=== PATIENT | male | born 1970 | race Caucasian/White ===

== ENCOUNTER 2018-06-06 10:15 | Day surgery (SDC) | payer OTHER ==
[~2018-06-06 10:15] MED LIST: PROPOFOL INJ 200 MG/20 ML VIAL IV ONE
[2018-06-06] MEDS ORDERED: PROPOFOL INJ 200 MG/20 ML VIAL IV ONE (11:18)
[2018-06-06 12:10] VITALS: BP 113/77
--- NOTE | 2018-06-06 12:58 | Operative Report ---
Operative Report DATE OF SURGERY: 06/06/18 Operative Report: The risks, benefits and alternatives of the procedure including risks of bleeding, perforation requiring surgery are explained to the patient in detail and informed consent is obtained. Patient was taken back to the endoscopy suite and placed in the left, lateral decubital position. Timeout was called. Propofol medication is administered. A rectal examination is done which did not reveal any masses, tears or fissures. An Olympus videoscope is inserted into the patient's rectum. The scope was then carefully advanced all the way to the cecum. The cecum was identified by the usual anatomical landmarks including the ileocecal valve as well as the appendiceal office. Photodocumentation is obtained. The scope was then sequentially pulled back via the various segments of the colon including the ascending colon transverse colon, splenic flexure, descending colon and finally into the rectosigmoid portions of the colon. Retroflexion maneuvers performed. PREOPERATIVE DIAGNOSIS: Change in bowel habits POSTOPERATIVE DIAGNOSIS: 2 sigmoid colon polyps; first which is removed via snare polypectomy and retrieved the second was ablated in situ. Rectal polyp that was removed via snare polypectomy and retrieved. Internal hemorrhoids OPERATION: Colonoscopy with snare polypectomy. Colonoscopy with biopsy SURGEON: RAJESH PRATT ANESTHESIA: LMAC TISSUE REMOVED OR ALTERED: As noted above. COMPLICATIONS: None. ESTIMATED BLOOD LOSS: None. INTRAOPERATIVE FINDINGS: As noted above. PROCEDURE: Patient tolerated the procedure well. No immediate postprocedure complications are noted. Patient discharged in good condition. Discharge date 06/06/2018. Discharge diet: Regular. Discharge activity: Regular. 2-3 week follow-up to discuss findings. Patient is instructed to call the office or proceed to the emergency room should there be any further problems or questions. 3-5 year surveillance colonoscopy. We will wait on the pathology.
== END 2018-06-06 12:05 | disposition home or self-care (01) ==
LOC: END 10:15
PROVIDERS: ATTEND Internal Medicine Gastroenterology
DX: D12.5 Benign neoplasm of sigmoid colon (principal); K63.5 Polyp of colon; K64.8 Other hemorrhoids; Z79.899 Other long term (current) drug therapy
CPT/HCPCS: 45380; 45385; 88305 ×2; J2704; 811

== ENCOUNTER 2018-09-30 11:36 | Emergency (ER) | payer OTHER ==
[2018-09-30] MEDS ORDERED: ASPIRIN 81 MG TABLET, CHEWABLE PO ONE (12:04)
--- NOTE | 2018-09-30 12:06 | ER Document Report ---
ED Medical Screen (RME) - General Chief Complaint: Chest Pain Stated Complaint: CHEST PAIN, JAW PAIN Time Seen by Provider: 09/30/18 12:04 Notes: 48 years old male presents today with precordial chest pain around 1045 this morning, associated with left jaw numbness and left arm tingling sensation. It is still persisting but intensity has subsided. Not associated with any nausea vomiting difficulty in breathing. He had chest pain couple of days ago went away Not a smoker no alcohol abuse. No known family history. TRAVEL OUTSIDE OF THE [place] IN LAST 30 DAYS: No - Related Data Allergies/Adverse Reactions: No Known Allergies Allergy (Verified 09/30/18 11:43) Past Medical History - Social History Chew tobacco use (# tins/day): No Frequency of alcohol use: Occasional Drug Abuse: None - Past Medical History Cardiac Medical History: Denies: Hx Coronary Artery Disease, Hx Heart Attack, Hx Hypertension Pulmonary Medical History: Denies: Hx Asthma, Hx Bronchitis, Hx COPD, Hx Pneumonia Neurological Medical History: Denies: Hx Cerebrovascular Accident, Hx Seizures Renal/ Medical History: Denies: Hx Peritoneal Dialysis Musculoskeltal Medical History: Denies Hx Arthritis - Immunizations Hx Diphtheria, Pertussis, Tetanus Vaccination: Yes Physical Exam - Vital signs Vitals: Temp Pulse Resp BP Pulse Ox 98.2 F 74 16 124/80 97 09/30/18 11:52 09/30/18 11:52 09/30/18 11:52 09/30/18 11:52 09/30/18 11:52 Course - Vital Signs Vital signs: Temp Pulse Resp BP Pulse Ox 98.2 F 74 16 124/80 97 09/30/18 11:52 09/30/18 11:52 09/30/18 11:52 09/30/18 11:52 09/30/18 11:52 Doctor's Discharge - Discharge Referrals: KARMEN JOAQUIN DO [Primary Care Provider] - Follow up as needed
--- NOTE | 2018-09-30 12:32 | RADIOLOGY REPORT (SQ) ---
EXAM DESCRIPTION: CHEST SINGLE VIEW COMPLETED DATE/TIME: 09/30/2018 12:23 pm REASON FOR STUDY: Chest pain COMPARISON: 11/22/2015 EXAM PARAMETERS: NUMBER OF VIEWS: One view. TECHNIQUE: Single frontal radiographic view of the chest acquired. RADIATION DOSE: NA LIMITATIONS: None. FINDINGS: LUNGS AND PLEURA: No opacities, masses or pneumothorax. No pleural effusion. MEDIASTINUM AND HILAR STRUCTURES: No masses. Contour normal. HEART AND VASCULAR STRUCTURES: Heart normal in size. Normal vasculature. BONES: No acute findings. HARDWARE: None in the chest. OTHER: No other significant finding. IMPRESSION: NO ACUTE RADIOGRAPHIC FINDING IN THE CHEST. TECHNICAL DOCUMENTATION: JOB ID: [id number] [employer] All Rights Reserved Reading location - IP/workstation name: [email or web address]
[2018-09-30 12:41] LABS: ABSOLUTE BASOPHILS # (AUTO) 0.1 10^3/uL (0.0-0.2); ABSOLUTE EOSINOPHILS # (AUTO) 0.1 10^3/uL (0.0-0.6); ABSOLUTE LYMPHOCYTES (AUTO) 2.2 10^3/uL (0.5-4.7); ABSOLUTE MONOCYTES (AUTO) 0.6 10^3/uL (0.1-1.4); ABSOLUTE NEUT (AUTO) 3.5 10^3/uL (1.7-8.2); BASOPHILS % (AUTO) 0.8 % (0-2); HEMATOCRIT 44.9 % (37.9-51.0); HEMOGLOBIN 15.8 g/dL (13.5-17.0); LYMPHOCYTES % (AUTO) 33.9 % (13-45); MEAN CORPUSCULAR HEMOGLOBIN 30.6 pg (27.0-33.4); MEAN CORPUSCULAR HGB CONC 35.2 g/dL (32.0-36.0); MEAN CORPUSCULAR VOLUME 87 fl (80-97); MONOCYTES % (AUTO) 9.4 % (3-13); PLATELET COUNT 224 10^3/uL (150-450); RED BLOOD COUNT 5.16 10^6/uL (4.35-5.55); SEGMENTED NEUTROPHILS % (AUTO) 54.9 % (42-78); TOTAL CELLS COUNTED % (AUTO) 100 %; WHITE BLOOD COUNT 6.5 10^3/uL (4.0-10.5)
[2018-09-30 12:55] LABS: ALANINE AMINOTRANSFERASE 29 U/L (21-72); ALBUMIN 4.8 g/dL (3.5-5.0); ALKALINE PHOSPHATASE 49 U/L (38-126); ANION GAP 13 (5-19); ASPARTATE AMINO TRANSFERASE 31 U/L (17-59); BILIRUBIN,DIRECT 0.3 mg/dL (0.0-0.4); BILIRUBIN,TOTAL 0.6 mg/dL (0.2-1.3); BLOOD UREA NITROGEN 21 mg/dL (7-20); CARBON DIOXIDE 29 mmol/L (22-30); CHLORIDE 101 mmol/L (98-107); CREATINE KINASE 155 U/L (55-170); GLUCOSE 110 mg/dL (75-110); POTASSIUM 4.4 mmol/L (3.6-5.0); SODIUM 142.8 mmol/L (137-145); TOTAL PROTEIN 7.8 g/dL (6.3-8.2)
[2018-09-30 13:06] LABS: CREATINE KINASE MB 0.53 ng/mL (<4.55)
[2018-09-30 13:10] LABS: TROPONIN I < 0.012 ng/mL
--- NOTE | 2018-09-30 13:21 | EKG REPORT ---
SEVERITY:- ABNORMAL ECG - SINUS RHYTHM RIGHT BUNDLE BRANCH BLOCK : Confirmed by: Morgan Villegas MD 30-Sep-2018 13:19:54
--- NOTE | 2018-09-30 17:02 | ER Document Report ---
ED Cardiac - General Chief Complaint: Chest Pain Stated Complaint: CHEST PAIN, JAW PAIN Time Seen by Provider: 09/30/18 12:04 Mode of Arrival: Ambulatory Information source: Patient, Relative Notes: Patient is a 48-year-old male who comes to emergency room complaining of left- sided chest pain was left hand numbness. Patient states that it started approximately 10:45 AM this morning while he was sitting at his desk at work. He states he came lasted a few minutes and went away but then it caught his attention a few months later and decided that he would get it checked out. He states when he got to the emergency room about 1130 discomfort and the chest led to the left hand numbness. Also stated he might of had a little left cheek numbness as well. This lasted until he got into her room. Patient denies any family history of cardiac problems he has no medical past as far as cardiac goes or other medical problems he sees Dr. Joaquin on a regular basis and had his last physical about a year ago. He states that his cholesterol is been good and he takes no current medications. He does not smoke drink or do narcotics. His job is 1 of little stress. TRAVEL OUTSIDE OF THE [place] IN LAST 30 DAYS: No - HPI Patient complains to provider of: Chest pain Use of: denies: Alcohol, Amphetamines, Bath salts, Caffeine, Cocaine, Decongestants Was the onset of pain: Sudden Is the pain a: New problem Chest pain location: Other - Slightly above the left breast into the lateral side Quality of pain: Intermittent, Moderate, Indigestion Chest pain radiation location: Left shoulder Severity now: None Severity at worst: Moderate Pain level currently: 3 Chest pain precipitating factors: At Rest Cardiac risk factors: denies: Hypertension, Dyslipidemia Positive cardiac history: No Associated symptoms: Heartburn Exacerbated by: Denies Relieved by: Other - Time Similar symptoms previously: Yes - Has occurred once before really short duration. Recently seen / treated by doctor: Yes - Dr. Joaquin - Related Data Allergies/Adverse Reactions: No Known Allergies Allergy (Verified 09/30/18 11:43) Past Medical History - General Information source: Patient, Relative - Social History Smoking Status: Never Smoker Cigarette use (# per day): No Chew tobacco use (# tins/day): No Smoking Education Provided: No Frequency of alcohol use: None Drug Abuse: None Lives with: Family Family History: Reviewed & Not Pertinent Patient has suicidal ideation: No Patient has homicidal ideation: No - Past Medical History Cardiac Medical History: Denies: Hx Coronary Artery Disease, Hx Heart Attack, Hx Hypertension Pulmonary Medical History: Denies: Hx Asthma, Hx Bronchitis, Hx COPD, Hx Pneumonia Neurological Medical History: Denies: Hx Cerebrovascular Accident, Hx Seizures Renal/ Medical History: Denies: Hx Peritoneal Dialysis Musculoskeletal Medical History: Denies Hx Arthritis - Immunizations Hx Diphtheria, Pertussis, Tetanus Vaccination: Yes Review of Systems - Review of Systems Constitutional: No symptoms reported EENT: No symptoms reported Cardiovascular: See HPI Respiratory: No symptoms reported Gastrointestinal: No symptoms reported Genitourinary: No symptoms reported Male Genitourinary: No symptoms reported Musculoskeletal: No symptoms reported Skin: No symptoms reported Hematologic/Lymphatic: No symptoms reported Neurological/Psychological: No symptoms reported -: Yes All other systems reviewed and negative Physical Exam - Vital signs Vitals: Temp Pulse Resp BP Pulse Ox 98.2 F 74 16 124/80 97 09/30/18 11:52 09/30/18 11:52 09/30/18 11:52 09/30/18 11:52 09/30/18 11:52 Interpretation: Normal - Notes Notes: PHYSICAL EXAMINATION: GENERAL: Patient is a well-nourished well-developed physically fit 48-year-old male who is in no apparent distress on physical exam today. HEAD: Atraumatic, normocephalic. EYES: Pupils equal round and reactive to light, extraocular movements intact, sclera anicteric, conjunctiva are normal. NECK: Normal range of motion, supple without lymphadenopathy LUNGS: Breath sounds clear to auscultation bilaterally and equal. No wheezes rales or rhonchi. HEART: Regular rate and rhythm without murmurs ABDOMEN: Soft, nontender, nondistended abdomen. No guarding, no rebound. No masses appreciated. Musculoskeletal: Normal range of motion, no pitting or edema. No cyanosis. NEUROLOGICAL: Normal speech, normal gait. Normal sensory, motor exams PSYCH: Normal mood, normal affect. SKIN: Warm, Dry, normal turgor, no rashes or lesions noted. Course - Re-evaluation Re-evalutation: 09/30/18 17:04 Patient stay in the emergency room has been uneventful. His EKG showed a right bundle branch block with a sinus rhythm at approximately 74 and previously it had an EKG performed on November 22, 2015 showed identical right bundle branch block with a heart rate of 72. There is been no changes since that time. Patient's chest pain dissipated the minute he came into ER. He has a heart score of 0 and he has limited risk factors. No family history of heart problems no current stressful situations no smoking no drinking no drugs he works out slightly not overly doing it and he has a low stress job. Everything points to this to be anything but a cardiac event. Given that he has had the second troponin rule out I feel comfortable allow him to go home especially since he has good follow-up with Dr. Joaquin and can contact her Wednesday to set up an outpatient stress test. I told him it is very important according to the rules that he get a stress test outpatient within the next 10-14 days. Both he and his understand this and he is wanting to have a stress test done just to be 100% certain there is no problems. I explained to him an EKG is only as good as the moment we take it though. Given that he has no discomfort now we will discharge him home and he will return to ER if he has any concerns or problems. - Vital Signs Vital signs: Temp Pulse Resp BP Pulse Ox 98.2 F 74 16 124/80 97 09/30/18 11:52 09/30/18 11:52 09/30/18 11:52 09/30/18 11:52 09/30/18 11:52 - Laboratory Result Diagrams: 09/30/18 12:13 09/30/18 12:13 Laboratory results interpreted by me: 09/30/18 12:13 BUN 21 H Discharge - Discharge Clinical Impression: Atypical chest pain, Reflux esophagitis Condition: Stable Disposition: HOME, SELF-CARE Instructions: Aspirin (Cardiac) (COUNTS INCLUDE 234 BEDS AT THE [facility]), Chest Pain of Unclear Cause (OM), Prilosec (Acid Pump Inhibitor) (OM), Reflux Disease (GERD) (COUNTS INCLUDE 234 BEDS AT THE [facility]) Additional Instructions: At present cannot find any acute problems to hold you here in the emergency room. You have ruled out cardiac pretty in the fact that we have not found any elevation in your cardiac enzymes therefore you have good follow-up with Dr. Joaquin and you can contact her Wednesday and schedule for outpatient stress test within the next 2 weeks. Given we have discussed your low likelihood of having any cardiac events because of low comorbidity status continue to do what you currently are doing as far as your activities go. Should you have any concerns or problems over the weekend return to ER for recheck. Prescriptions: Omeprazole 20 mg PO DAILY #30 tablet. Referrals: KARMEN JOAQUIN, [Primary Care Provider] - Follow up as needed
[2018-09-30 17:24] VITALS: BP 118/93
== END 2018-09-30 17:27 | disposition home or self-care (01) ==
LOC: ER 11:36
DX: R07.89 Other chest pain (principal); K21.0 Gastro-esophageal reflux disease with esophagitis; R68.84 Jaw pain; R20.0 Anesthesia of skin
CPT/HCPCS: 36415; 71045; 80053; 82550; 82553; 84484; 85025; 93005; 93010; 99285